=== PATIENT | male | born 2000 | race African-American/Black ===

== ENCOUNTER 2022-03-28 16:17 | Emergency (ER) | payer OTHER | END 2022-03-28 16:40 | disposition home or self-care (01) | LOC: CSHERS 16:17 | DX: N34.2 Other urethritis (principal) | CPT/HCPCS: 99283 ==

== ENCOUNTER 2022-05-30 17:27 | Emergency (ER) | payer OTHER ==
[2022-05-30] MEDS ORDERED: cefTRIAXone\\ROCEPHIN 500 MG VIAL ONE (19:47)
[2022-05-30] MEDS ORDERED: Lidocaine 1% PF 5 ML VIAL ONE (19:48)
[2022-05-31 11:04] LABS: Chlam.trachomatis by PCR,Urine Not Detected (NotDetected); GC N.gonorrhoeae PCR,UrineVOID Not Detected (NotDetected)
== END 2022-05-30 20:09 | disposition home or self-care (01) ==
LOC: CSHERS 17:27
DX: N34.2 Other urethritis (principal); R36.9 Urethral discharge, unspecified
CPT/HCPCS: 87491; 87591; 96372; 99283; J0696